=== PATIENT | female | born 1995 | race African-American/Black ===

== ENCOUNTER 2018-09-18 08:11 | Emergency (ER) | payer OTHER ==
[2018-09-18 08:14] VITALS: BP 124/69; PULSE 86; TEMP 98.6; BMI 46.7
[2018-09-18 08:30] LABS: HCG,QUALITATIVE URINE Positive
--- NOTE | 2018-09-18 08:31 | PDOC ---
History of Present Illness - General Chief Complaint: Back Pain Stated Complaint: BACK PAIN Time Seen by Provider: 09/18/18 08:28 History Source: Patient - History of Present Illness Occurred: reports: other Pain Location: reports: abdomen, back Past History - Past Medical History Allergies/Adverse Reactions: Allergies Allergy/AdvReac Type Severity Reaction Status Date / Time No Known Allergies Allergy Verified 09/18/18 08:13 Home Medications: Ambulatory Orders Pnv No.95/Ferrous Fum/Folic AC [ Vitamin Tablet] 1 each PO DAILY Asthma: No Cancer: No Cardiac Disorders: No COPD: No Diabetes: No HTN: No Seizures: No Thyroid Disease: No - Surgical History Abdominal Surgery: Yes - Suicide/Smoking/Psychosocial Hx Smoking History: Never smoked Hx Alcohol Use: No Drug/Substance Use Hx: No Substance Use Type: None Hx Substance Use Treatment: No Review of Systems - Review of Systems Constitutional: No: Fever ABD/GI: No: Diarrhea, Nausea, Vomiting : No: Burning, Dysuria, Hematuria *Physical Exam - Vital Signs Last Vital Signs Temp Pulse Resp BP Pulse Ox 98.6 F 86 18 124/69 99 09/18/18 08:13 09/18/18 08:13 09/18/18 08:13 09/18/18 08:13 09/18/18 08:13 - Physical Exam General Appearance: Yes: Appropriately Dressed. No: Apparent Distress HEENT: positive: Normal Voice Neck: positive: Supple Respiratory/Chest: negative: Respiratory Distress Gastrointestinal/Abdominal: positive: Soft. negative: Tender Musculoskeletal: negative: CVA Tenderness Integumentary: positive: Dry, Warm Neurologic: positive: Fully Oriented, Alert, Normal Mood/Affect Moderate Sedation - Procedure Monitoring Vital Signs: Procedure Monitoring Vital Signs Temperature 98.6 F 09/18/18 08:13 Pulse Rate 86 09/18/18 08:13 Respiratory Rate 18 09/18/18 08:13 Blood Pressure 124/69 09/18/18 08:13 O2 Sat by Pulse Oximetry (%) 99 09/18/18 08:13 Medical Decision Making - Medical Decision Making 09/18/18 08:30 22 yo F, , ~9-10 weeks by dates, with lower back pain radiating to lower abdomen x several weeks. No vaginal bleeding, dysuria, nausea, vomiting, fever or chills. Scheduled for first tomorrow but here today because pain worsened this a.m. See exam 1st trimester w/ pain Stable and in NAD w/ benign abd R/o ectopic -US -UA 09/18/18 11:16 US read as +IUP @ 5w5d fetus w/ no cardiac activity and possible L hemorrhagic ovarian cyst. Pt informed of results. No pain at this time and denies vag beed. UA unremarkable. Stable for dc w/ [employer] f/u tomorrow as scheduled 0 *DC/Admit/Observation/Transfer Diagnosis at time of Disposition: Abdominal pain affecting - Discharge Dispostion Disposition: HOME Condition at time of disposition: Good - Referrals - Patient Instructions Printed Discharge Instructions: Managing Symptoms of Additional Instructions: Your ultrasound today shows an approximately 5 week 5 day fetus with no cardiac activity as of yet. Your urine shows no sign of infection. Please follow-up with your OB as scheduled tomorrow - Post Discharge Activity
--- NOTE | 2018-09-18 08:56 | PDOC ---
*Physical Exam - Vital Signs Last Vital Signs Temp Pulse Resp BP Pulse Ox 98.6 F 86 18 124/69 99 09/18/18 08:13 09/18/18 08:13 09/18/18 08:13 09/18/18 08:13 09/18/18 08:13 ED Treatment Course - ADDITIONAL ORDERS Additional order review: Laboratory Results 09/18/18 08:18 Urine HCG, Qual Positive Medical Decision Making - Medical Decision Making 09/18/18 08:55 Pt seen by the Advanced Practice Provider under my direct supervision Ancillary studies reviewed I agree with plan as outlined by the Advanced Practice Provider LAKIA Reagan
[2018-09-18 09:22] LABS: URINE APPEARANCE CLOUDY; URINE BILIRUBIN NEGATIVE (<2.0 mg/dL); URINE COLOR YELLOW; URINE GLUCOSE (UA) NEGATIVE (NEGATIVE); URINE KETONE NEGATIVE (NEGATIVE); URINE LEUK ESTERASE 1+ (NEGATIVE); URINE NITRITE NEGATIVE (NEGATIVE); URINE PROTEIN NEGATIVE (NEGATIVE); URINE UROBILINOGEN NEGATIVE mg/dL (0.2-1.0)
[2018-09-18 09:35] LABS: EPI CELLS MANY /HPF (FEW); URINE MUCUS RARE
== END 2018-09-18 11:30 | disposition home or self-care (01) ==
LOC: JER 08:11
DX: O26.891 Other specified pregnancy related conditions, first trimester (principal); R10.30 Lower abdominal pain, unspecified; Z3A.01 Less than 8 weeks gestation of pregnancy
CPT/HCPCS: 76817-TC; 81003; 81015; 84703; 99282-25